=== PATIENT | male | born 1985 | race Caucasian/White ===

== ENCOUNTER 2020-08-09 15:36 | Emergency (ER) | payer SELFPAY ==
--- NOTE | 2020-08-09 15:38 | XRR_ITS ---
PROCEDURE INFORMATION: Exam: XR Left Ankle Exam date and time: 08/09/2020 4:03 PM Age: 35 years old Clinical indication: Injury or trauma; Other: Not specified; Blunt trauma; Ankle; Left TECHNIQUE: Imaging protocol: XR Left ankle. Views: 3 or more views. COMPARISON: No relevant prior studies available. FINDINGS: Bones/joints: Negative for acute bony abnormality Soft tissues: Soft tissue edema is seen in the medial and lateral aspect of the ankle XR/XR ankle LT min 3V* [id number] IMPRESSION: 1. No acute bone abnormality 2. Soft tissue edema medial and lateral ankle
[2020-08-09 15:42] VITALS: BP 161/105; PULSE 81; RESP 20; TEMP 36.6; O2SAT 100; BMI 24.3
--- NOTE | 2020-08-09 16:26 | ED_ITS ---
HPI - Extremity Problem General: Chief complaint: Extremity Injury, Lower Stated complaint: Left Ankle Injury Time Seen by Provider: 08/09/20 16:09 Source: patient Mode of arrival: ambulatory Limitations: no limitations History of Present Illness: HPI Narrative: 35-year-old male who states he was running last night and twisted his ankle in a big [place]. He states he felt a pop in his ankle has had swelling and pain. He states pain is sharp in nature and rates an 8 out of 10. He states he is unable to bear weight. He states it is improved with rest. Denies any other injuries. Associated symptoms: Deny chest pain, fever(s) or rash Review of Systems Const: Denies: fever(s), chills, body aches or change in appetite Eyes: Denies: blurry vision or eye discomfort ENMT: Denies: throat pain or dental pain Card: Denies: chest pain Resp: Denies: dyspnea GI: Denies: abdominal pain, nausea, vomiting or diarrhea : Denies: dysuria Musc: Reports: joint pain Skin/Breast: Denies: rash Neuro: Denies: headache(s) Psych: Denies: depression Trey/Lymph: Denies: easy bruising All/Imm: Denies: urticaria Physical Exam 2 Const: COMMON NORMALS: no acute distress, patient oriented x3 and healthy appearing HENMT: COMMON NORMALS: normocephalic and atraumatic HEAD & SCALP: normocephalic and atraumatic Eye: COMMON NORMALS: Equal, round and reactive pupils present and EOMs intact bilaterally PUPIL: Yes Equal, round and reactive pupils present Neck/C-Spine: COMMON NORMALS: full ROM and supple Chest: COMMONS NORMALS: normal inspection of the chest and normal palpation of entire chest wall Resp: COMMON NORMALS: normal respiratory effort, No retractions, No use of accessory muscles and clear to auscultation bilaterally AUSCULTATION: clear to auscultation bilaterally Cardio: COMMON NORMALS: regular rate, regular rhythm and No murmurs present (Cardio) RATE: regular rate RHYTHM: regular rhythm GI: COMMON NORMALS: Normal to inspection, nondistended, normoactive bowel sounds present, Soft to palpation, non-tender and no masses PALPATION: Yes Soft to palpation Extremity: COMMON NORMALS: normal to inspection NARRATIVE EXTREMITY EXAM: Tenderness to medial ankle with quite a bit of swelling. [place] test shows no signs of Achilles tendon rupture Neuro: COMMON NORMALS: patient oriented x3, moves all extremities and no focal motor deficits Psych: COMMON NORMALS: mental status grossly normal, Normal thought process present and cooperative THOUGHT PROCESS: Normal thought process present Skin: COMMON NORMALS: no rashes or lesions noted and no wounds GENERAL SKIN EXAM: no rashes or lesions noted Course Vital Signs: Vital signs: Vital Signs Temperature 97.9 F 08/09/20 15:42 Pulse Rate 81 08/09/20 15:42 Respiratory Rate 20 H 08/09/20 15:42 Blood Pressure 161/105 08/09/20 15:42 Pulse Oximetry 100 08/09/20 15:42 MDM - Extremity (Nontraumatic) MDM Narrative: Medical decision making narrative: Patient presents here with an ankle sprain. He does have quite a bit of tenderness and swelling. Patient's x-ray here showed no fracture. Will place patient in a splint patient uses crutches. He is to follow-up with orthopedics. Imaging Data^: X-ray left ankle: Attestation: I personally reviewed and interpreted this imaging study as follows: Radiologist's impression: No acute abnormality noted on x-ray Discharge Plan Discharge Patient Disposition: Home Clinical Impression: Ankle sprain and strain Condition: Stable Prescriptions: [place] 5-325 mg tablet 1 tab PO Q6H PRN (Reason: pain) Qty: 14 RF: 0 Naprosyn 500 mg tablet 500 mg PO BID PRN (Reason: pain) Qty: 20 RF: 0 Discharge Orders: Discharge Order (Routine); Ordered 08/09/20 Ordered By: Chilo Cali Referrals: Nikko Quintana MD [Physician] - 1-3 days Discharge Diet: Advance as tolerated Discharge Activity: Resume usual activity Patient Instructions: Ankle Sprain (ED) Coding Level of Care Code ED Mold Chipper for Chg Fwd Exam Comprehensive
[2020-08-09] MEDS: HYDROcodone-acetaminophen 7.5-325 mg Tablet 1 TAB PO (16:41)
--- NOTE | 2020-08-10 08:36 | DCPLANNER ---
integrated marketing manager had message to schedule a follow up appointment for patient with ortho. integrated marketing manager called the ortho clinic, spoke with Rosa, gave clinic patients information. integrated marketing manager was told that patients information would be printed and reviewed. Clinic will call patient with appointment information.
--- NOTE | 2020-08-15 14:48 | DCPLANNER ---
Addendum entered by Helen Keenan 08/15/20 15:39: Rosa from ortho called shelter case manager stating that the clinic tried to call patient, called phone number [phone], unable to speak with patient and unable to leave a voicemail for patient. Original Note: global transportation manager called the ortho clinic to confirm that a follow up appointment had been scheduled for patient, shelter case manager spoke with Lili. global transportation manager was told that patient needs to follow up with primary care. Clinic will call patient with appointment information.
== END 2020-08-09 17:03 | disposition home or self-care (01) ==
PROVIDERS: Emergency Provider Emergency Medicine
DX: S93.402A Sprain of unspecified ligament of left ankle, initial encounter (principal); S96.912A Strain of unspecified muscle and tendon at ankle and foot level, left foot, initial encounter; X50.1XXA Overexertion from prolonged static or awkward postures, initial encounter
CPT/HCPCS: 12345; 29515; 73610; 99281; 99283; E0114